=== PATIENT | male | born 1950 | race Caucasian/White ===

== ENCOUNTER 2022-11-05 17:22 | Inpatient (IN) | payer MEDICARE, OTHER ==
[~2022-11-05] VITALS: Ht 177.8 cm; Wt 90.0 kg
[~2022-11-05 17:22] MED LIST: BUPR150T8 PO; CIPR-202 PO; ESCI20TA PO; ESOM20CA PO; FLO0.4C PO; HYDR25TA4 PO; INDO-12 PO; METH500T PO; METR500T PO; ROSU10TA2 PO; TEST200V33 IM
[2022-11-05 18:11] LABS: ALANINE AMINOTRANSFERASE 63 U/L (12-78); ALBUMIN 4.2 G/DL (3.4-5.0); ALBUMIN/GLOBULIN RATIO 1.3 (1.1-1.5); ALKALINE PHOSPHATASE 70 IU/L (46-116); ANION GAP 6 (8-16); ASPARTATE AMINO TRANSFERASE 28 U/L (10-37); BILIRUBIN,TOTAL 0.4 MG/DL (0.1-1.0); BLOOD UREA NITROGEN 24 MG/DL (7-18); BUN/CREATININE RATIO 18.9 (5.4-32.0); CALCIUM 9.3 MG/DL (8.5-10.1); CHLORIDE 100 MMOL/L (99-107); CREATININE 1.27 MG/DL (0.60-1.10); GLUCOSE 113 MG/DL (70-104); MAGNESIUM 2.2 MG/DL (1.5-2.4); POTASSIUM 3.9 MMOL/L (3.5-5.1); SODIUM 137 MMOL/L (135-145); TOTAL CARBON DIOXIDE 30.6 MMOL/L (24-32); TOTAL PROTEIN 7.4 G/DL (6.4-8.2); eGFR 56 ML/MIN
[2022-11-05 18:15] LABS: BASOPHILS # (AUTO) 0.1 X10'3 (0-0.2); BASOPHILS % (AUTO) 1.1 % (0-1); EOSINOPHILS # (AUTO) 0.2 X10'3 (0-0.9); EOSINOPHILS % (AUTO) 1.7 % (0-6); HEMOGLOBIN 16.7 g/dl (14.0-17.9); LYMPHOCYTES # (AUTO) 2.4 X10'3 (1.1-4.8); LYMPHOCYTES % (AUTO) 24.2 % (21-51); MEAN CORPUSCULAR HEMOGLOBIN 29.8 PG (27.0-31.0); MEAN CORPUSCULAR HGB CONC 34.8 g/dL (33.0-36.5); MEAN CORPUSCULAR VOLUME 85.7 FL (78-98); MEAN PLATELET VOLUME 7.5 FL (7.4-10.4); MONOCYTES # (AUTO) 0.7 X10'3 (0-0.9); MONOCYTES % (AUTO) 6.7 % (2-12); NEUTROPHILS # (AUTO) 6.7 X10'3 (1.8-7.7); NEUTROPHILS % (AUTO) 66.3 % (42-75); PLATELET COUNT 249 X10'3 (140-440); RED BLOOD COUNT 5.61 X10'6 (4.70-6.10); RED CELL DISTRIBUTION WIDTH 13.2 % (11.5-14.5); WHITE BLOOD COUNT 10.1 X10'3 (4.5-11.0)
--- NOTE | 2022-11-05 20:55 | NUR ---
PT CALLED AND INFORMED HIM TO COME BACK HE IS ON HIS WAY
[2022-11-05] MEDS ORDERED: temazepam 15mg capsule PO PRN (21:00)
[2022-11-05 22:37] LABS: APTT 29 SECONDS (22-32)
[2022-11-05] MEDS ORDERED: aspirin 81mg tab.chew PO ONE (22:45)
[2022-11-05] MEDS ORDERED: nitroGLYCERIN 0.2mg/hour patch TD ONE (22:45)
[2022-11-05] MEDS ORDERED: heparin 10,000 units/1 ML INJ IV ONE (22:45)
[2022-11-05] MEDS ORDERED: normal saline 1000ml 1,000 ML IV ONE (22:45)
[2022-11-05] MEDS ORDERED: acetaminophen 325mg tablet PO ONE (22:45)
[2022-11-05] MEDS: heparin 25,000 UNIT/250ml bag 250 ML IV PRN ×2 (23:14→23:18)
[2022-11-05] MEDS ORDERED: HYDROcodone/acetaminophen 10/325mg tab PO PRN (23:15)
[2022-11-05] MEDS ORDERED: potassium Cl 20 mEq SR tablet PO PRN ×2 (23:15)
[2022-11-05] MEDS ORDERED: HYDROcodone/acetaminophen 5mg/325mg tablet PO PRN (23:15)
[2022-11-05] MEDS ORDERED: potassium Cl 40MEQ/1/2NS 520ml 520 ML IV PRN (23:15)
[2022-11-05] MEDS ORDERED: nitroGLYCERIN 0.4mg SUBLingual tab SL PRN (23:15)
[2022-11-05] MEDS ORDERED: ondansetron/PF 4mg/2ml inj IV PRN (23:15)
[2022-11-05] MEDS ORDERED: morphine 2 MG/ML inj. syringe IV PRN (23:15)
[2022-11-05] MEDS ORDERED: metoprolol tartrate 1mg/ml inj IV PRN (23:15)
[2022-11-05] MEDS ORDERED: magnesium Cl slow-release 64mg tablet PO PRN (23:15)
[2022-11-05] MEDS ORDERED: aminophylline 250mg/10ml inj. IV PRN (23:15)
[2022-11-05] MEDS ORDERED: magnesium 4gm in 100ml NS 100 ML IV PRN (23:15)
[2022-11-05] MEDS ORDERED: acetaminophen 325mg tablet PO PRN ×2 (23:15)
[2022-11-05] MEDS ORDERED: regadenoson 0.4mg/5ml syringe IV PRN (23:15)
[2022-11-05] MEDS: normal saline 1000ml 1,000 ML IV SCH ×2 (23:47→23:50)
[2022-11-06] VITALS (10 sets, daily range): BP systolic 97–126; BP diastolic 43–71
--- NOTE | 2022-11-06 00:01 | NUR ---
pt to radiology with RN and cardiac monitoring.
[2022-11-06] MEDS ORDERED: ketorolac tromethamine 15mg/ml inj. IV ONE (00:05)
[2022-11-06] MEDS ORDERED: oxyCODONE IR 5mg (immed. release) tablet PO ONE (00:05)
[2022-11-06] MEDS ORDERED: morphine 4 MG/ML inj SYRINge IV ONE (00:05)
--- NOTE | 2022-11-06 00:48 | NUR ---
FLOOR UNABLE TO TAKE REPORT AT THIS TIME
--- NOTE | 2022-11-06 01:45 | NUR ---
Received report pt. transported to PCU room 3028B via stretcher in stable condition. Pt. has a Peripheral IV with NS @ 70 ml/hr and heparin gtt infusing at 1,000 units per hour. No c/o pain or discomfort able void per urinal yellow clear urine adequate amt. Pt. is NPO for Jannette scan in am. Second IV started tolerated well. Placed on 02 2L NC. Plan for PTT at 530 am.
[2022-11-06] MEDS ORDERED: FLUT1DIS INH (04:05)
[2022-11-06] MEDS ORDERED: GABA300C PO (04:05)
[2022-11-06] MEDS ORDERED: LISI20TA28 PO (04:05)
[2022-11-06] MEDS ORDERED: DULO60CA60 PO (04:05)
[2022-11-06] MEDS ORDERED: ASPI81TA52 PO (04:05)
[2022-11-06] MEDS ORDERED: ROSU5TAB PO (04:05)
[2022-11-06] MEDS ORDERED: MELO-100 PO (04:05)
[2022-11-06] MEDS: morphine 2 MG/ML inj. syringe IV PRN ×2 (05:14→13:09)
[2022-11-06 06:47] LABS: BASOPHILS # (AUTO) 0.1 X10'3 (0-0.2); BASOPHILS % (AUTO) 1.1 % (0-1); EOSINOPHILS # (AUTO) 0.2 X10'3 (0-0.9); EOSINOPHILS % (AUTO) 2.4 % (0-6); HEMATOCRIT 42.1 % (42.0-52.0); HEMOGLOBIN 14.8 g/dl (14.0-17.9); LYMPHOCYTES # (AUTO) 2.7 X10'3 (1.1-4.8); LYMPHOCYTES % (AUTO) 31.7 % (21-51); MEAN CORPUSCULAR HEMOGLOBIN 30.1 PG (27.0-31.0); MEAN CORPUSCULAR HGB CONC 35.1 g/dL (33.0-36.5); MEAN CORPUSCULAR VOLUME 85.6 FL (78-98); MEAN PLATELET VOLUME 7.9 FL (7.4-10.4); MONOCYTES # (AUTO) 0.5 X10'3 (0-0.9); MONOCYTES % (AUTO) 5.7 % (2-12); NEUTROPHILS % (AUTO) 59.1 % (42-75); PLATELET COUNT 241 X10'3 (140-440); RED BLOOD COUNT 4.91 X10'6 (4.70-6.10); RED CELL DISTRIBUTION WIDTH 13.4 % (11.5-14.5); WHITE BLOOD COUNT 8.5 X10'3 (4.5-11.0)
[2022-11-06 06:58] LABS: ALANINE AMINOTRANSFERASE 52 U/L (12-78); ALBUMIN 3.4 G/DL (3.4-5.0); ALBUMIN/GLOBULIN RATIO 1.3 (1.1-1.5); ALKALINE PHOSPHATASE 57 IU/L (46-116); ANION GAP 7 (8-16); ASPARTATE AMINO TRANSFERASE 26 U/L (10-37); BILIRUBIN,TOTAL 0.4 MG/DL (0.1-1.0); BLOOD UREA NITROGEN 26 MG/DL (7-18); BUN/CREATININE RATIO 18.8 (5.4-32.0); CALCIUM 8.5 MG/DL (8.5-10.1); CHLORIDE 101 MMOL/L (99-107); CREATININE 1.38 MG/DL (0.60-1.10); GLUCOSE 126 MG/DL (70-104); POTASSIUM 3.5 MMOL/L (3.5-5.1); SODIUM 136 MMOL/L (135-145); TOTAL CARBON DIOXIDE 28.5 MMOL/L (24-32); TOTAL PROTEIN 6.1 G/DL (6.4-8.2); eGFR 51 ML/MIN
[2022-11-06] MEDS ORDERED: ROSUVASTATIN CALCIUM 5 MG TABLET PO SCH (08:00)
[2022-11-06] MEDS ORDERED: lisinopril 20mg tablet PO SCH (08:00)
[2022-11-06] MEDS ORDERED: duloxetine 30mg CAPSULE.DR PO SCH (08:00)
[2022-11-06] MEDS ORDERED: gabapentin 300mg capsule PO SCH (08:00)
[2022-11-06] MEDS ORDERED: buPROPion SR 150mg tablet PO SCH (08:00)
[2022-11-06] MEDS ORDERED: budesonide 0.5mg/2ml UD nebule IH SCH (08:00)
[2022-11-06] MEDS: albuterol 2.5 MG/3 ML nebule NEB SCH ×2 (08:17→15:05)
[2022-11-06] MEDS ORDERED: heparin 10,000 units/1 ML INJ IV PRN (08:35)
--- NOTE | 2022-11-06 09:08 | NUR ---
RN spoke to Hung regarding pt increasing headache this AM. Pt on heparin gtt and needs a bolus. RN does not feel comfortable giving heparin bolus until head bleed clearance is complete. Pt states that his headache has been intermittent since Tuesday when he fell but headache has gotten worse. No head CT was ever complete. See new orders. RN to hold heparin gtt per Hung until head CT results come back.
[2022-11-06 12:29] LABS: CHOL/HDL RATIO 3.8 (0.00-4.99); CHOLESTEROL 162 MG/DL (0-200); HDL CHOLESTEROL 43 MG/DL (35-60); LDL CHOLESTEROL 94 MG/DL (50-100); TRIGLYCERIDES 288 MG/DL (20-135)
[2022-11-06] MEDS ORDERED: ASPI-1265 PO (15:54)
[2022-11-06] MEDS ORDERED: aspirin 81mg, enteric-coated 1 TAB TABLET.DR PO SCH (21:00)
== END 2022-11-06 17:15 | disposition home or self-care (01) | DRG 313 ==
LOC: ER 17:22 → ED HOLD 23:17 → PCU 3S 11-06 01:15
PROVIDERS: ADMIT Internal Medicine; ATTEND Family Medicine
PROC: 4A02XM4 Measurement of Cardiac Total Activity, External Approach (ICD-10-PCS; principal; 2022-11-06)
PROC: 3E033HZ Introduction of Radioactive Substance into Peripheral Vein, Percutaneous Approach (ICD-10-PCS; 2022-11-06)
DX: R07.89 Other chest pain (principal); E78.5 Hyperlipidemia, unspecified; Z20.822 Contact with and (suspected) exposure to COVID-19; G62.9 Polyneuropathy, unspecified; K80.20 Calculus of gallbladder without cholecystitis without obstruction; G89.29 Other chronic pain; M54.9 Dorsalgia, unspecified; I12.9 Hypertensive chronic kidney disease with stage 1 through stage 4 chronic kidney disease, or unspecified chronic kidney disease; N18.30 Chronic kidney disease, stage 3 unspecified; Z79.899 Other long term (current) drug therapy; Z83.3 Family history of diabetes mellitus; Z79.82 Long term (current) use of aspirin
CPT/HCPCS: 36415; 70450; 71045; 72070; 78452; 80053; 80061; 83735; 83880; 84443; 84484; 85025; 85610; 85730; 87081; 87811; 93005; 93017; 93306; 94640; 94760; 96365; 99285; A4615; A6449; A9500; G0378; J1644; J2270; J2405; J2785; J7030

== ENCOUNTER 2025-03-08 06:35 | Inpatient (IN) | payer MEDICARE, OTHER ==
--- NOTE | 2025-02-27 12:25 | ELECTROCARDIOGRAPH REPORT ---
[facility] Test Date: 2025-02-27 Test Time: 12:21:46 Pat Name: ANYA GRAHAM Department: PRE/OP CARDIOLOGY [id number] Room: Gender: M Credit Director: [place] : 1950 Requested By: ANITA LAINEZ Order Number: [id number] Reading MD: Dr. PITO Nunes Measurements Intervals [place] Rate: 56 P: 37 FL: 195 QRS: 103 QRSD: 123 T: 40 QT: 446 QTc: 431 Interpretive Statements Sinus bradycardia Nonspecific intraventricular conduction delay Electronically Signed On 02-27-2025 20:04:[address] PITO Nunes Please click the below link to view image of tracing.
[2025-02-27 12:27] LABS: BASOPHILS # (AUTO) 0.1 X10'3 (0-0.2); BASOPHILS % (AUTO) 1.3 % (0-1); EOSINOPHILS # (AUTO) 0.1 X10'3 (0-0.9); LYMPHOCYTES # (AUTO) 1.9 X10'3 (1.1-4.8); LYMPHOCYTES % (AUTO) 29.8 % (21-51); MEAN CORPUSCULAR HEMOGLOBIN 27.6 PG (27.0-31.0); MEAN CORPUSCULAR HGB CONC 34.1 g/dL (33.0-36.5); MEAN CORPUSCULAR VOLUME 81.1 FL (78-98); MEAN PLATELET VOLUME 7.5 FL (7.4-10.4); MONOCYTES # (AUTO) 0.4 X10'3 (0-0.9); MONOCYTES % (AUTO) 5.9 % (2-12); NEUTROPHILS # (AUTO) 3.9 X10'3 (1.8-7.7); PRE OP HEMATOCRIT 44.9 % (42.0-52.0); PRE OP HEMOGLOBIN 15.3 g/dL (14.0-17.9); PRE OP PLATELET COUNT 284 X10'3 (140-440); PRE OP WHITE BLOOD COUNT 6.2 10'3 (4.8-10.8); RED BLOOD COUNT 5.53 X10'6 (4.70-6.10); RED CELL DISTRIBUTION WIDTH 15.2 % (11.5-14.5)
[2025-02-27 12:30] LABS: BILIRUBIN,URINE NEGATIVE (Neg); CLARITY,URINE CLEAR (Clear); COLOR,URINE YELLOW (Yellow); GLUCOSE, URINE NEGATIVE (Neg); KETONES,URINE NEGATIVE (Neg); LEUKOCYTE ESTERASE ,URINE NEGATIVE (Neg); NITRITES, URINE NEGATIVE (Neg); OCCULT BLOOD,URINE MODERATE (Neg); PROTEIN,URINE NEGATIVE (Neg); UA COLLECTION TYPE VOIDED; UROBILINOGEN,URINE 0.2 E.U/dL (0.2-1.0)
[2025-02-27 12:36] LABS: BACTERIA,URINE NONE SEEN /HPF (Neg); WBC,URINE 0-4 /HPF (0-4)
[2025-02-27 12:37] LABS: MUCUS STRANDS NONE SEEN /LPF (Neg); SQUAMOUS EPITHELIAL CELL,UR NONE SEEN /LPF (FEW)
[2025-02-27 12:43] LABS: PRE OP INR 1.1 INR; PRE OP PROTIME 11.2 SECONDS (9.0-12.0)
[2025-02-27 12:44] LABS: ALKALINE PHOSPHATASE 93 IU/L (46-116); BLOOD UREA NITROGEN 21 MG/DL (7-18); BUN/CREATININE RATIO 15.3 (10.0-20.0); CALCIUM 8.9 MG/DL (8.5-10.1); CHLORIDE 101 MMOL/L (99-107); CREATININE 1.37 MG/DL (0.60-1.10); PRE OP ALT 52 U/L (30-65); PRE OP ANION GAP 8 (8-16); PRE OP AST 34 U/L (10-37); PRE OP BILIRUB, TOTAL 0.8 MG/DL (0.0-1.0); PRE OP GLUCOSE 94 MG/DL (70-104); PRE OP POTASSIUM 4.3 MMOL/L (3.4-5.1); PRE OP SODIUM 137 MMOL/L (135-145); TOTAL CARBON DIOXIDE 28.3 MMOL/L (24-32); TOTAL PROTEIN 7.9 G/DL (6.4-8.2); eGFR 51 ML/MIN
--- NOTE | 2025-02-27 12:57 | RADIOLOGY REPORT ---
DI CHEST,TWO VIEWS, HISTORY: PREOP COMPARISON: None None TECHNICAL DATA: 2 view of the chest was obtained. FINDINGS: Lines and tubes: None Cardiomediastinal silhouette: normal Pulmonary vasculature: normal Lung expansion: normal Lung airspace: normal Lung interstitium: normal Pleura: normal Pneumothorax: no Bones: Unremarkable Other: no IMPRESSION: No acute intrathoracic abnormality.
[~2025-03-08] VITALS: Ht 177.8 cm; Wt 82.6 kg
[2025-03-08] VITALS (35 sets, daily range): BP systolic 73–137; BP diastolic 54–91; PULSE 36–64; RESP 9–21; TEMP 97.1–98; O2SAT 91–100
[~2025-03-08 06:35] MED LIST changes: +AMLO5TAB16 PO; +APIX5TAB3 PO; +CHOL50004 PO; -CIPR-202 PO; +DESV50TA PO; -ESCI20TA PO; -ESOM20CA PO; +FLEC100T3 PO; -FLO0.4C PO; +GABA300C PO; -HYDR25TA4 PO; -INDO-12 PO; -METH500T PO; -METR500T PO; +MONT-40 PO; +MULT-1085 PO; +PANT-47 PO; -ROSU10TA2 PO; +ROSU5TAB PO; +UBIQ100C6 PO; +[UNRECOGNIZED DRUG - CODE] PO; +ondansetron 4mg rapidly disintigrating tab PO PRN
[2025-03-08] MEDS: ceFAZolin 2gm/dext,iso 50mL 50 ML IV ONE (07:22)
[2025-03-08] MEDS ORDERED: sugammadex 200mg/2ml injection IV ONE (07:26)
[2025-03-08] MEDS: famotidine 20mg tablet PO ONE (07:27)
[2025-03-08] MEDS: VANCOMYCIN/H2O 1.5g/300mL PB 300 ML IV ONE (07:47)
[2025-03-08] MEDS: ringers solution, lacted 1,000 ML IV SCH ×2 (07:47→08:10)
[2025-03-08] MEDS ORDERED: labetalol 20mg/4ml (5mg/ml) syringe IV PRN ×2 (08:10→09:15)
[2025-03-08] MEDS ORDERED: morphine 4 MG/ML inj SYRINge IV PRN (08:10)
[2025-03-08] MEDS ORDERED: HYDROmorphone/PF 0.2 MG/ML SYRINGE IV PRN ×2 (08:10)
[2025-03-08] MEDS ORDERED: ondansetron/PF 4mg/2ml inj IV PRN ×2 (08:10→09:15)
[2025-03-08] MEDS ORDERED: hydrALAZINE 20mg/ml inj. IV PRN ×2 (08:10→09:15)
[2025-03-08] MEDS ORDERED: morphine 2 MG/ML inj. syringe IV PRN (08:10)
[2025-03-08] MEDS ORDERED: iohexol 350MG/ML 100ml bottle IV ONE (08:15)
[2025-03-08] MEDS ORDERED: midazolam 1 mg/ML 2ml injection ONE (08:18)
[2025-03-08] MEDS ORDERED: fentaNYL/PF 50MCG/1 ML 2ML syringe ONE (08:18)
[2025-03-08] MEDS ORDERED: propofol inj 20 ML IV ONE (08:21)
[2025-03-08] MEDS ORDERED: heparin 1,000unit/ml 10ml vial 10 ML ONE (08:34)
[2025-03-08] MEDS ORDERED: rocuronium 10mg/ml inj IV ONE (08:38)
[2025-03-08] MEDS ORDERED: dexamethasone sod phosphate 4mg/ml inj. ONE (08:51)
[2025-03-08] MEDS ORDERED: ondansetron/PF 4mg/2ml inj ONE (08:51)
[2025-03-08] MEDS ORDERED: ALPRAZolam 0.25mg tablet PO PRN (09:15)
[2025-03-08] MEDS ORDERED: pantoprazole 40mg Tablet.DR PO PRN (09:15)
[2025-03-08] MEDS ORDERED: potassium Cl 40MEQ/270ML bag 250 ML IV PRN (09:15)
[2025-03-08] MEDS ORDERED: magnesium sulf-water 2g/50mL 50 ML IV PRN (09:15)
[2025-03-08] MEDS ORDERED: potassium CL 10mEq/100ml bag 100 ML IV PRN (09:15)
[2025-03-08] MEDS ORDERED: magnesium sulf-water 4G/100mL 100 ML IV PRN (09:15)
[2025-03-08] MEDS ORDERED: acetaminophen 325mg tablet PO PRN (09:15)
[2025-03-08] MEDS ORDERED: diphenhydrAMINE 25mg capsule PO PRN (09:15)
[2025-03-08] MEDS ORDERED: potassium Cl 20mEq/100mL bag 100 ML IV PRN (09:15)
[2025-03-08] MEDS ORDERED: proCHLORperazine 10 MG/2 ml inj IV PRN (09:15)
[2025-03-08] MEDS ORDERED: docusate sod 100mg capsule PO PRN (09:15)
[2025-03-08] MEDS ORDERED: potassium Cl 20 mEq SR tablet PO PRN (09:15)
[2025-03-08] MEDS ORDERED: potassium Cl 40MEQ/1/2NS 520ml 520 ML IV PRN (09:15)
[2025-03-08] MEDS ORDERED: HYDROcodone/acetaminophen 5mg/325mg tablet PO PRN (09:15)
[2025-03-08] MEDS: normal saline 1000ml 1,000 ML IV SCH (09:15)
[2025-03-08] MEDS: acetaminophen 1,000mg/100ml IV 100 ML IV PRN (09:19)
--- NOTE | 2025-03-08 09:19 | OPERATIVE REPORT ---
Operative Report Providers to CC CC: WILLIAM GALLEGO MD; Poncho Babin MD ~ Date of Procedure: March 08, 2025 Pre-Operative Diagnosis: Atrial Fibrillation with high bleeding risk Post-Operative Diagnosis SAME as PRE-Op Procedure Performed 1. Transseptal Puncture via CLAUDIA guidance 2. Left Atrial Appendogram 3. Left Atrial Appendage closure with 24mm Watchman FLX Pro Pro Device 4. Ultrasound guided access, right Femoral Vein Surgeon: Anita Gallego MD Mate Fourth n/a Anesthesiologist: Gianluca Bledsoe Type of Anesthesia: General Findings: Left Atrial appendage amenable to percutaneous closure. Complications None Prosthetics\\Implants used: 24mm Watchman Flx Pro Estimated Blood Loss: Minimal Specimen Removed: None Description of Procedure: The patient was brought to the pit laborer in a fasting state. They underwent General anesthesia. Ultrasound was used to guide access to the right femoral vein where two atul-cross Perclose devices were placed and upsized to an 8Fr sheath. Heparin was given to maintain an ACT over 250 seconds. An 0.035" wire was advanced into the SVC. The 8Fr sheath was then removed and the 8.5Fr VersaCross Transseptal sheath was advanced into the SVC. The RF wire was then advanced to the tip of the sheath/dilator. Using CLAUDIA guidance, appropriate position of the tip of the sheath was determined and using an energized wire tip, advanced into the left atrium. The sheath and dilator were then advanced over the wire into the left atrium. Over the wire, the Versacross sheath was removed and exchanged for the Watchman Sheath. The wire and dilator were then removed and exchanged for a 5Fr pigtail catheter which was placed into the left atrial appendage and an appendogram performed in the CAMPO-Caudal position. There, ACT was confirmed to be therapeutic. The Watchman sheath was then advanced into the left atrial appendage over the pigtail catheter. Once appropriate position was determined, the pigtail was removed, the 24mm Watchman FLX device and delivery system were advanced into the tip of the sheath. The delivery system was advanced until an appropriate FLX ball was formed. The guide was then retracted and the Watchman device was unsheathed will full deployment in the appendage. Next, PASS criteria was performed confirming adequate positioning and anchoring(using a tug-test), sizing showing adequate compression, and no significant leak around the device. Another Appendogram was performed confirming placement. The device was then released from the delivery system. The guide and delivery system were removed and the perclose tied as well as the [id number] suture, ensuring adequate hemostasis. Mean LA Presssure: 10mmHg Contrast: 10cc ACT: 256s Device Compression: 25-29% RESULTS: 1. Successful Left-Atrial Appendage closure with a 24mm Watchman FLX Pro device 2. Right Femoral Vein access, closed with Perclose x 2 and [id number]-[id number]-[id number] suture 3. Resume Eliquis 5mg BID x 45days with repeat imaging at that time. If sealed without evidence of device related thrombosis, can stop OAC and start ASA 81mg QD indefinitely, plavix 75mg QD x 6 months. They will be watched in the recovery area until stable, then transferred to the telemetry at that time. ANITA GALLEGO MD March 08, 2025 09:19
--- NOTE | 2025-03-08 09:55 | ELECTROCARDIOGRAPH REPORT ---
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 PITO Nunes Measurements Intervals [place] Rate: 59 P: 26 [place]: 222 QRS: 52 QRSD: 134 T: 49 QT: 515 QTc: 511 Interpretive Statements Sinus rhythm Borderline prolonged KS interval Nonspecific intraventricular conduction delay Electronically Signed On 03-08-2025 11:06:[address] PITO Nunes Please click the below link to view image of tracing.
[2025-03-08] MEDS: ceFAZolin 1GM/D5W- ADD-VANTAGE 50 ML IV SCH (16:42)
[2025-03-08] MEDS: sod chloride 0.9% 10ml flush syringe IV SCH (16:43)
[2025-03-08] MEDS: vancomycin/NS 1 GM ADD-VANTAGE 250 ML IV SCH (22:07)
[2025-03-09 02:00] VITALS: BP 126/73; PULSE 61; RESP 14; TEMP 97.8; O2SAT 97
[2025-03-09 06:00] VITALS: BP 138/71; PULSE 56; RESP 12; TEMP 97.2; O2SAT 95
--- NOTE | 2025-03-09 06:44 | RADIOLOGY REPORT ---
CHEST RADIOGRAPH Indication: s/p Watchman Technique: Single frontal view of the chest was obtained Comparison: CHEST,SINGLE VIEW on DOS: 11/05/22 IMPRESSION: Heart appears normal in size. The lungs appear clear without focal airspace opacity, effusion, or pn eumothorax. Watchman device is present.
--- NOTE | 2025-03-09 06:59 | ELECTROCARDIOGRAPH REPORT ---
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 Teresita Gallego Measurements Intervals [place] Rate: 48 P: 44 NC: 193 QRS: -5 QRSD: 121 T: 22 QT: 514 QTc: 460 Interpretive Statements Sinus bradycardia Nonspecific intraventricular conduction delay Borderline T abnormalities, diffuse leads Electronically Signed On 03-11-2025 20:52:[address] Teresita Gallego Please click the below link to view image of tracing.
[2025-03-09 07:38] LABS: BASOPHILS % (AUTO) 0.3 % (0-1); EOSINOPHILS % (AUTO) 0.1 % (0-6); HEMATOCRIT 39.6 % (42.0-52.0); HEMOGLOBIN 13.5 g/dl (14.0-17.9); LYMPHOCYTES # (AUTO) 1.2 X10'3 (1.1-4.8); LYMPHOCYTES % (AUTO) 10.7 % (21-51); MEAN CORPUSCULAR HEMOGLOBIN 27.1 PG (27.0-31.0); MEAN CORPUSCULAR VOLUME 79.9 FL (78-98); MEAN PLATELET VOLUME 7.8 FL (7.4-10.4); MONOCYTES # (AUTO) 0.7 X10'3 (0-0.9); MONOCYTES % (AUTO) 6.2 % (2-12); NEUTROPHILS # (AUTO) 9.4 X10'3 (1.8-7.7); NEUTROPHILS % (AUTO) 82.7 % (42-75); PLATELET COUNT 262 X10'3 (140-440); RED BLOOD COUNT 4.96 X10'6 (4.70-6.10); WHITE BLOOD COUNT 11.4 X10'3 (4.5-11.0)
--- NOTE | 2025-03-09 07:38 | CARDIOLOGY REPORT ---
APPROVED REPORT EXAM: Focused, limited intraprocedural transesophageal 2D, spectral and color flow Doppler echocardio gram during WATCHMAN deployment. 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 Overall systolic function appears normal. LVEF is 60%. RIGHT VENTRICLE RV appears mildly dilated with normal contractility. ATRIA LA appears at least moderately dilated. Comma shaped appendage (TDS0 without thrombus detected. Left upper pulmonary vein identified. Intact interatrial septum. Width / length averages are: 0degr - 14 x 26 mm; 45degr - 9 x 20 mm; 90degr - 10 x 20 mm; 135degr 13 x 19 mm. Loop 23: Septal tenting visualiz ed with RF atrial septal puncture performed. Loop 24: Wire in LA. Pigtail advanced to tip of appendag e. LA pressure is measured at: 7 mmHG. Fluid bolus administered, LAP remeasured at 10 mmHG. Appendagr am performed. Loop 27: Flex ball deployed. 24 mm Watchman FLX device, PASS criteria attempted, succes sfully. Loop 28: Successful "TUG" test performed. Optimal compression obtained - shoulder to shoulder measurement is: 17.75 mm. Loop 42: Device released. Patent interatrial septum with small residual le ft to right shunt (s/p transseptal puncture). Successfully occluded left atrial appendage with Watchm an device well positioned without thrombus. No residual flow around device detected. No pericardial e ffusion post-implant. PERICARDIUM There is no pericardial effusion. CONCLUSION LV appears normal in size and thickness. Overall systolic function appears normal. LVEF is 60%. RV ap pears mildly dilated with normal contractility. LA appears at least moderately dilated. Comma shaped appendage (TDS0 without thrombus detected. Left upper pulmonary vein identified. Intact interatrial s eptum. Width / length averages are: 0degr - 14 x 26 mm; 45degr - 9 x 20 mm; 90degr - 10 x 20 mm; 135d egr 13 x 19 mm. Loop 23: Septal tenting visualized with RF atrial septal puncture performed. Loop 24: Wire in LA. Pigtail advanced to tip of appendage. LA pressure is measured at: 7 mmHG. Fluid bolus ad ministered, LAP remeasured at 10 mmHG. Appendagram performed. Loop 27: Flex ball deployed. 24 mm Watc hman FLX device, PASS criteria attempted, successfully. Loop 28: Successful "TUG" test performed. Opt imal compression obtained - shoulder to shoulder measurement is: 17.75 mm. Loop 42: Device released. Patent interatrial septum with small residual left to right shunt (s/p transseptal puncture). Success fully occluded left atrial appendage with Watchman device well positioned without thrombus. No residu al flow around device detected. No pericardial effusion post-implant. There is no pericardial effusio n. Conclusion LV appears normal in size and thickness. Overall systolic function appears normal. LVEF is 60%. RV appears mildly dilated with normal contractility. LA appears at least moderately dilated. Comma shaped appendage (TDS0 without thrombus detected. Left upper pulmonary vein identified. Intact interatrial septum. Width / length averages are: 0degr - 14 x 26 mm; 45degr - 9 x 20 mm; 90degr - 10 x 20 mm; 135degr 13 x 19 mm. Loop 23: Septal tenting visual ized with RF atrial septal puncture performed. Loop 24: Wire in LA. Pigtail advanced to tip of ap pendage. LA pressure is measured at: 7 mmHG. Fluid bolus administered, LAP remeasured at 10 mmHG. Fernando endagram performed. Loop 27: Flex ball deployed. 24 mm Watchman FLX device, PASS criteria attempted , successfully. Loop 28: Successful "TUG" test performed. Optimal compression obtained - shoulder t o shoulder measurement is: 17.75 mm. Loop 42: Device released. Patent interatrial septum with small residual left to right shunt (s/p transseptal puncture). Successfully occluded left atrial appendag e with Watchman device well positioned without thrombus. No residual flow around device detected. N o pericardial effusion post-implant. There is no pericardial effusion.
[2025-03-09 07:51] LABS: PROTHROMBIN TIME 10.7 SECONDS (9.0-12.0)
[2025-03-09 08:00] VITALS: RESP 12; O2SAT 95
[2025-03-09 08:09] LABS: ALANINE AMINOTRANSFERASE 44 U/L (12-78); ALBUMIN 3.4 G/DL (3.4-5.0); ALKALINE PHOSPHATASE 76 IU/L (46-116); ANION GAP 7 (8-16); ASPARTATE AMINO TRANSFERASE 27 U/L (10-37); BILIRUBIN,TOTAL 0.5 MG/DL (0.1-1.0); BLOOD UREA NITROGEN 16 MG/DL (7-18); BUN/CREATININE RATIO 13.9 (10.0-20.0); CALCIUM 8.5 MG/DL (8.5-10.1); CHLORIDE 103 MMOL/L (99-107); CREATININE 1.15 MG/DL (0.60-1.10); GLUCOSE 115 MG/DL (70-104); MAGNESIUM 2.1 MG/DL (1.5-2.4); POTASSIUM 3.6 MMOL/L (3.5-5.1); PRO BRAIN NATRIURETIC PEPTIDE 186 PG/ML (0-125); SODIUM 137 MMOL/L (135-145); TOTAL CARBON DIOXIDE 26.7 MMOL/L (24-32); TOTAL PROTEIN 6.7 G/DL (6.4-8.2); eCRCL 60 ML/MIN; eGFR 63 ML/MIN
[2025-03-09 11:00] VITALS: BP 119/66; PULSE 53; RESP 15; TEMP 98; O2SAT 96
[2025-03-09] MEDS ORDERED: flecainide 50mg tablet PO SCH (20:00)
[2025-03-09] MEDS ORDERED: gabapentin 300mg capsule PO SCH (20:00)
[2025-03-09] MEDS ORDERED: apixaban 5mg tablet PO SCH (20:00)
[2025-03-09] MEDS ORDERED: atorvastatin 20mg tablet PO SCH (21:00)
[2025-03-09] MEDS ORDERED: pantoprazole 40mg Tablet.DR PO SCH (21:00)
[2025-03-10] MEDS ORDERED: cholecalciferol (vitamin D3) 1,000 unit (25mcg) tablet PO SCH (08:00)
[2025-03-10] MEDS ORDERED: DESVENLAFAXINE SUCCINATE 50 MG PO SCH (08:00)
[2025-03-10] MEDS ORDERED: montelukast 10mg tablet PO SCH (08:00)
[2025-03-10] MEDS ORDERED: multivitamins, therapeutics tablet PO SCH (08:00)
[2025-03-10] MEDS ORDERED: UBIQUINOL PO SCH (08:00)
[2025-03-10] MEDS ORDERED: amLODIPine 5mg tablet PO SCH (08:00)
[2025-03-10] MEDS ORDERED: buPROPion SR 150mg tablet PO SCH (08:00)
--- NOTE | 2025-03-10 15:46 | CARDIOLOGY REPORT ---
APPROVED REPORT EXAM: Limited 2D, Doppler, and color-flow Echocardiogram. Patient Location: 3011 [address] Blood Pressure: 138/71 mmHg Heart Rate: 51 bpm Rhythm: Sinus Bradycardia Indications ONE DAY POST IMAGING AND WATCHMAN FLX ADRIANNE CLOSURE DEVICE IMPLANTATION CHRONIC ATRIAL FIBRILLATION 24 mm WATCHMAN FLX ADRIANNE CLOSURE DEVICE Flight Engineer Instructor: Slade Gallego MD Previous echo: 03/08/2025 [facility] EF: 60%, nrm LV, mild RV, mod LA, small L to R shunt S/P puncture. 2D Dimensions RVDd 3.6 cm LA Diam4.6 cm IVSd 1.1 (0.7-1.1cm) LVDd 5.3 cm PWd 1.0 (0.7-1.1cm) IVSs 1.2 (0.8-1.2cm) RA Minor3.5 cmLVDs 3.4 (2.5-4.0cm) PWs 1.2 (0.8-1.2cm) LVEF(%) 63.3 (>50%) IVC 19.84 mmFS (%) 34.6 % SV 84.6 ml CO 4.3 L/min Aortic Valve AoV Peak Param. 166.2 cm/s AoV VTI 35.8 cm AO Peak GR. 11.0 mmHg AO Mean GR. 5 mmHg Tricuspid Valve TR P. Velocity 250 cm/s RAP ESTIMATE 10 mmHg TR Peak Gr. 25 mmHg RVSP 35 mmHg LEFT VENTRICLE Normal LV size and wall thickness. Overall systolic function is normal. Overall LVEF is around 60%. RIGHT VENTRICLE Right ventricle is mild to moderately dilated with normal contractility. Estimated PA systolic pressu re is 35 mmHg. ATRIA LA is moderately dilated. Mobile/intact interatrial septum with small L to R shunt s/p transseptal pu ncture by color Doppler. AORTIC VALVE Aortic valve is grossly normal in structure with gross stenosis. Mild insufficiency. MITRAL VALVE Normal MV annulus without obvious stenosis. Mild regurgitation. TRICUSPID VALVE TV appears structurally normal with trace regurgitation. PERICARDIUM Normal pericardium. No pericardial effusion seen. Other Information Study Quality: Adequate Conclusion Normal LV size and wall thickness. Overall systolic function is normal. Overall LVEF is around 60%. Right ventricle is mild to moderately dilated with normal contractility. Estimated PA systolic pressu re is 35 mmHg. LA is moderately dilated. Mobile/intact interatrial septum with small L to R shunt s/p transseptal puncture by color Doppler. Aortic valve is grossly normal in structure with gross stenosis. Mild insufficiency. Normal MV annulus without obvious stenosis. Mild regurgitation. TV appears structurally normal with trace regurgitation. Normal pericardium. No pericardial effusion seen.
--- NOTE | 2025-03-14 09:01 | DISCHARGE SUMMARY ---
Discharge Summary Providers to CC CC: Poncho Babin MD ~ Discharge Summary Admission Diagnosis: Atrial Fibrillation with high bleeding risk Hospital Course DATE OF ADMISSION: 03/08/2025 DATE OF DISCHARGE: 03/09/2025 Discharge Diagnosis\Comment: Status post Left atrial appendage closure Operations\Procedures: 1. Transseptal Puncture via CLAUDIA guidance 2. Left Atrial Appendogram 3. Left Atrial Appendage closure with 24mm Watchman FLX Pro Pro Device 4. Ultrasound guided access, right Femoral Vein Consultants: None Complications: None Condition on DC: Stable Continued Medications: Amlodipine Besylate (Amlodipine Besylate) 5 Mg Tablet 1 TAB PO DAILY Apixaban (Eliquis) 5 Mg Tablet 5 MG PO BID Bupropion Hcl SR* (Wellbutrin SR*) 150 Mg Tablet.sa 2 TAB PO DAILY, TAB LOOK-ALIKE SOUND-ALIKE DRUG buSPIRone & buPROPion Cholecalciferol (Vitamin D3) (Vitamin D3) 125 Mcg (5000 Unit) Capsule 2 CAP PO DAILY for 30 Days, #30 CAP 0 Refills Desvenlafaxine Succinate (Pristiq ER) 50 Mg Tab.er.24h 1 TAB PO DAILY Flecainide Acetate (Flecainide Acetate) 100 Mg Tablet 1 TAB PO Q12H for 30 Days, #60 TAB 0 Refills Gabapentin (Neurontin) 300 Mg Capsule 2 CAP PO BID Montelukast Sodium (Montelukast Sodium) 10 Mg Tablet 10 MG PO DAILY Multivitamin (Multi Vitamin Daily) 1 Each Tablet 1 TAB PO DAILY for 30 Days, #30 TAB 0 Refills Pantoprazole Sodium (PROTONIX tablet) 40 Mg Tablet.dr 20 MG PO HS Rosuvastatin Calcium (Crestor) 5 Mg Tablet 1 TAB PO HS Testosterone Cypionate (TESTOSTERONE CYPIONATE 200mg/ml 10ml vial) 200 Mg/Ml Vial 0.5 ML IM Q2W, #10 ML 1 Refill Turmeric Root Extract (Turmeric) 750 Mg Capsule 2 CAP PO QAM Ubiquinol (Qunol Zain Coq10) 100 Mg Capsule 1 CAP PO QAM Discharge Summary: 74yo man with HTN, HLD, Atrial Fibrillation and high bleeding risk admitted status post left atrial occlusion with 24mm Watchman Flx Pro. Did well overnight without issues. --Resume Eliquis 5mg BID x 45days with repeat imaging at that time. If sealed without evidence of device related thrombosis, can stop OAC and start ASA 81mg QD indefinitely, plavix 75mg QD x 6 months. *Problems/Diagnosis: (1) Atrial fibrillation Total Time Spent on D/C: Up to 30 Minutes Counseling Services Smoking & Tobacco Cessation: N/A ANITA LAINEZ MD Mar 14, 2025 09:00
== END 2025-03-09 14:02 | disposition home or self-care (01) | DRG 274 ==
LOC: PAS IN 06:35 → PCU 3S 13:10
PROVIDERS: ADMIT Student in an Organized Health Care Education/Training Program; ATTEND Student in an Organized Health Care Education/Training Program
PROC: B24BZZ4 Ultrasonography of Heart with Aorta, Transesophageal (ICD-10-PCS; 2025-03-08)
PROC: 02L73DK Occlusion of Left Atrial Appendage with Intraluminal Device, Percutaneous Approach (ICD-10-PCS; principal; 2025-03-08 08:14)
DX: I48.91 Unspecified atrial fibrillation (principal); Z00.6 Encounter for examination for normal comparison and control in clinical research program; Z79.899 Other long term (current) drug therapy; Z79.01 Long term (current) use of anticoagulants
CPT/HCPCS: 33340; 36415; 71045; 71046; 76937; 80053; 81001; 82948; 83735; 83880; 85025; 85347; 85610; 85730; 86885; 86900; 86901; 86920; 87081; 93005; 93308; 93312; 93325; A4618; A6258; A6449; C1889; C1894; G0378; J0131; J0690; J1100; J1644; J2250; J2405; J2704; J3010; J3370; J3372; J3490; J7030; J7120; Q9967

== ENCOUNTER 2025-05-16 09:36 | Day surgery (SDC) | payer MEDICARE, OTHER ==
[~2025-05-16] VITALS: Ht 152.4 cm; Wt 84.8 kg
[~2025-05-16 09:36] MED LIST changes: -ondansetron 4mg rapidly disintigrating tab PO PRN
[2025-05-16] MEDS ORDERED: fentaNYL/PF 50MCG/1 ML 2ML syringe IV PRN (10:25)
[2025-05-16] MEDS ORDERED: fentaNYL/PF 50MCG/1 ML 2ML syringe IV ONE (10:25)
[2025-05-16] MEDS ORDERED: MIDAZolam 1mg/ml 10ml vial IV ONE (10:25)
[2025-05-16] MEDS ORDERED: MIDAZolam 1mg/ml 10ml vial IV PRN (10:25)
[2025-05-16 10:30] VITALS: BP 126/77; PULSE 52; RESP 14; TEMP 97.6; O2SAT 97
[2025-05-16] MEDS ORDERED: PANT20TA18 PO (10:44)
[2025-05-16] MEDS ORDERED: MULT-1142 PO (10:44)
[2025-05-16] MEDS ORDERED: SILD100T70 PO (10:44)
[2025-05-16] MEDS ORDERED: ALBU18HF2 INH (10:44)
[2025-05-16] MEDS ORDERED: FLUT1BLS4 INH (10:44)
[2025-05-16] MEDS ORDERED: DESV25TA2 PO (10:44)
[2025-05-16] MEDS ORDERED: FLUT16SP BOTHNARES (10:44)
[2025-05-16] MEDS ORDERED: IPRA30SP (10:44)
[2025-05-16] MEDS ORDERED: TURM500C4 PO (10:44)
[2025-05-16 10:58] LABS: MEAN PLATELET VOLUME 7.7 FL (7.4-10.4); RED CELL DISTRIBUTION WIDTH 14.5 % (11.5-14.5)
[2025-05-16 11:05] LABS: CREATININE 1.22 MG/DL (0.60-1.10); TOTAL CARBON DIOXIDE 26.7 MMOL/L (24-32); eCRCL 39 ML/MIN; eGFR 58 ML/MIN
[2025-05-16 11:16] LABS: APTT 32 SECONDS (22-32); INR 1.1 INR
[2025-05-16] MEDS ORDERED: fentaNYL/PF 50MCG/1 ML 2ML syringe ONE (11:21)
[2025-05-16] MEDS ORDERED: midazolam 1 mg/ML 2ml injection ONE (11:21)
[2025-05-16] MEDS ORDERED: CLOP-32 PO (12:13)
[2025-05-16] MEDS ORDERED: ASPI-1265 PO (12:14)
[2025-05-16 12:15] VITALS: BP 121/77; PULSE 48; RESP 10; O2SAT 93
[2025-05-16 12:30] VITALS: BP 113/69; PULSE 56; RESP 12; O2SAT 94
[2025-05-16 12:45] VITALS: BP 120/79; PULSE 48; RESP 14; O2SAT 96
--- NOTE | 2025-05-16 18:38 | CARDIOLOGY REPORT ---
APPROVED REPORT EXAM: Focused, limited transesophageal echocardiogram with color flow Doppler post Watchman device pl acement. 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 No pericardial effusion post implant. RV size and function appear normal.) LEFT VENTRICLE Normal LV size and wall thickness. Overall systolic function is normal. LVEF is 60-65%. RIGHT VENTRICLE RV is mildly increased in size with good systolic function. ATRIA LA is severely dilated. Mobile interatrial septum without shunt detected s/p transseptal puncture. Le ft upper pulmonary vein identified. Successfully occluded left atrial appendage with well visualized Watchman device well positioned without thrombus. No residual flow detected around device in all view s. PERICARDIUM Normal pericardium. No effusion. Conclusion Normal LV size and wall thickness. Overall systolic function is normal. LVEF is 60-65%. RV is mildly increased in size with good systolic function. LA is severely dilated. Mobile interatrial septum without shunt detected s/p transseptal puncture. Left upper pulmonary vein identified. Successfully occluded left atrial appendage with well visualiz ed Watchman device well positioned without thrombus. No residual flow detected around device in all views. Normal pericardium. No effusion.
== END 2025-05-16 13:00 | disposition home or self-care (01) ==
LOC: SSTAY O 09:36
PROVIDERS: ATTEND Student in an Organized Health Care Education/Training Program
DX: I48.91 Unspecified atrial fibrillation (principal); I12.9 Hypertensive chronic kidney disease with stage 1 through stage 4 chronic kidney disease, or unspecified chronic kidney disease; N18.30 Chronic kidney disease, stage 3 unspecified; E03.9 Hypothyroidism, unspecified; E78.00 Pure hypercholesterolemia, unspecified; Z79.01 Long term (current) use of anticoagulants; Z79.899 Other long term (current) drug therapy; Z90.49 Acquired absence of other specified parts of digestive tract; Z90.89 Acquired absence of other organs; Z98.890 Other specified postprocedural states; Z88.8 Allergy status to other drugs, medicaments and biological substances; Z83.3 Family history of diabetes mellitus; Z82.49 Family history of ischemic heart disease and other diseases of the circulatory system; Z82.5 Family history of asthma and other chronic lower respiratory diseases
CPT/HCPCS: 36415; 80048; 85025; 85610; 85730; 93312; J2250; J3010; J7030; 76000; 99152